=== PATIENT | male | born 1985 | race Caucasian/White ===

== ENCOUNTER 2018-08-25 15:38 | Emergency (ER) | payer OTHER ==
--- NOTE | 2018-08-25 15:59 | ERPHSYRPT ---
- History of Present Illness Time Seen by Provider: 08/25/18 15:50 Source: patient, family Physician History: 32 y/o white male, with chronic low back pain since 2011, presents with worsening low back pain. no acute injury. pt also has anxiety issues. he has not followed up with primary doctor or physical therapy as he was suppose to in the past. he denies cp, soa, abd pain and denies suicidal or homicidal issues. pt denies he is on or taking any medications at this time Timing/Duration: intermittent, worse, other (chronic) Method of Injury: bending, lifting, twisted, other (chronic ) Back Pain Location: lumbar spine Back Pain Radiation: buttocks, upper legs, lower legs Severity of Pain-Max: moderate Severity of Pain-Current: moderate Modifying Factors: Improves With: movement (worsens) Associated Symptoms: lower back pain, muscle spasms, No urinary incontinence, No loss of bowel control, No problems urinating Previous symptoms: same symptoms as today Allergies/Adverse Reactions: No Known Drug Allergies Allergy (Unverified 02/24/16 12:19) Hx Tetanus, Diphtheria Vaccination/Date Given: No Hx Influenza Vaccination/Date Given: No Hx Pneumococcal Vaccination/Date Given: No - Review of Systems Constitutional: No Symptoms Eyes: No Symptoms Ears, Nose, & Throat: No Symptoms Respiratory: No Symptoms Cardiac: No Symptoms Abdominal/Gastrointestinal: No Symptoms Genitourinary Symptoms: No Symptoms Musculoskeletal: Back Pain (low back pain) Skin: No Symptoms Neurological: No Symptoms Psychological: Anxiety Endocrine: No Symptoms Hematologic/Lymphatic: No Symptoms Immunological/Allergic: No Symptoms All Other Systems: Reviewed and Negative - Past Medical History Pertinent Past Medical History: Yes Neurological History: No Pertinent History ENT History: No Pertinent History Cardiac History: No Pertinent History Respiratory History: No Pertinent History Endocrine Medical History: No Pertinent History Musculoskeletal History: No Pertinent History GI Medical History: No Pertinent History History: No Pertinent History Psycho-Social History: Anxiety, Bipolar, Depression - Past Surgical History Past Surgical History: No Neuro Surgical History: No Pertinent History Cardiac: No Pertinent History Respiratory: No Pertinent History Gastrointestinal: No Pertinent History Genitourinary: No Pertinent History Musculoskeletal: No Pertinent History Male Surgical History: No Pertinent History - Social History Smoking Status: Current every day smoker How long have you smoked: YRS Exposure to second hand smoke: Yes Drug Use: none Patient Lives Alone: No - Physical Exam General Appearance: no apparent distress, alert, anxiety Eye Exam: PERRL/EOMI, eyes nml inspection Ears, Nose, Throat Exam: normal ENT inspection, moist mucous membranes Neck Exam: normal inspection, non-tender, supple, full range of motion Respiratory Exam: normal breath sounds, lungs clear, airway intact, No chest tenderness, No respiratory distress, No accessory muscle use, No rhonchi, No wheezing, No stridor Cardiovascular Exam: regular rate/rhythm, normal heart sounds, normal peripheral pulses Gastrointestinal Exam: soft, No tenderness, No guarding, No rebound Rectal Exam: not done Back Exam: normal inspection, normal range of motion, muscle spasm, No CVA tenderness, No vertebral tenderness, No decreased range of motion Extremity Exam: normal inspection, normal range of motion, pelvis stable Neurologic Exam: alert, oriented x 3, cooperative, resident care spec II-XII nml as tested, normal mood/affect, nml station & gait, sensation nml Skin Exam: normal color, warm, dry Lymphatic Exam: No adenopathy SpO2 Interpretation: normal Oxygen Delivery: Room Air - Progress Progress: unchanged Counseled pt/family regarding: diagnosis, need for follow-up - Departure Time of Disposition: 16:05 Departure Disposition: Home Clinical Impression: Chronic low back pain with bilateral sciatica Condition: Stable Critical Care Time: No Referrals: MARIO DASH [Primary Care Provider] - Additional Instructions: follow up with primary doctor for further management of this chronic condition. Prescriptions: Carisoprodol 350 mg [Soma 350 mg] 350 mg PO Q8H PRN PRN #10 tablet PRN Reason: Muscle Spasms Prednisone 10 mg [Deltasone 10 mg] 10 mg PO TID #12 tablet Tramadol HCl 50 mg [Ultram 50 mg] 50 mg PO TID PRN #15 tablet PRN Reason: Mild To Moderate Pain
[2018-08-25] MEDS ORDERED: DELTASONE 20 MG PO ONE (16:00)
[2018-08-25] MEDS ORDERED: ULTRAM 50 MG PO ONE (16:00)
[2018-08-25] MEDS ORDERED: Ativan 0.5 MG PO ONE (16:01)
[2018-08-25 16:02] VITALS: BP 141/104; PULSE 108; O2SAT 97
[2018-08-25] MEDS ORDERED: ULTRAM 50 MG ONE (16:04)
[2018-08-25] MEDS ORDERED: Ativan 1 MG ONE (16:05)
[2018-08-25] MEDS ORDERED: DELTASONE 20 MG ONE (16:05)
== END 2018-08-25 16:40 | disposition home or self-care (01) ==
LOC: ED 15:38
DX: M54.42 Lumbago with sciatica, left side (principal); M54.41 Lumbago with sciatica, right side
CPT/HCPCS: 99283; A9270-GY

== ENCOUNTER 2021-01-25 06:03 | Day surgery (SDC) | payer OTHER ==
[2021-01-25] MEDS ORDERED: Lactated Ringers 1,000 ML IV SCH (06:30)
[2021-01-25 09:07] VITALS: PULSE 54; O2SAT 98
[2021-01-25 09:16] VITALS: BP 157/86
--- NOTE | 2021-01-25 11:35 | OP ---
SURGERY DATE/TIME: 01/25/2021 0806 PREOPERATIVE DIAGNOSES: 1) Abdominal pain. 2) Abnormal CT scan with spots on liver. POSTOPERATIVE DIAGNOSIS: Normal colon. PROCEDURE: Diagnostic colonoscopy. SURGEON: Akash Mckoy M.D. ANESTHESIA: MAC by David Hopkins CRNA. ESTIMATED BLOOD LOSS: None. SPECIMENS: None. DESCRIPTION OF PROCEDURE: After informed written consent was obtained, the patient was taken to the endoscopy suite. He was placed in left lateral decubitus position and with monitored anesthesia; anesthesia was titrated to desired level of consciousness. A digital rectal exam showed normal sphincter tone and no internal lesions. The scope was inserted into the rectum and the entire colonic mucosa was traversed. The level of cecum and sequentially the entire colonic mucosa was traversed. The level of the cecum reached and verified with direct visualization of ileocecal valve. Upon withdrawal careful mucosal inspection revealed no gross abnormalities. There were no lesions. Prep was noted to be fair with some semisolid and liquid stool present throughout different areas of colon but overall visualization appeared to be adequate and there were no abnormalities. Prior to withdrawal retroflexion showed no internal lesions. The scope was removed and the patient was transferred to the recovery room in good condition.
== END 2021-01-25 09:24 | disposition home or self-care (01) ==
LOC: SDC 06:03
PROVIDERS: ATTEND Family Medicine
DX: R10.9 Unspecified abdominal pain (principal); R93.2 Abnormal findings on diagnostic imaging of liver and biliary tract